=== PATIENT | male | born 1970 | race Caucasian/White ===

== ENCOUNTER → 2017-11-23 | Outpatient (CLI) | payer OTHER ==
--- NOTE | 2017-11-25 09:20 | MRI ---
EXAM DESCRIPTION: Lumbar Spine w/o Contrast MRI. CLINICAL HISTORY: DDD COMPARISON: None. TECHNIQUE: Multiplanar, multiple standard sequences, non contrast MRI, lumbar spine. FINDINGS: L5-S1: Moderate disc space loss with bilateral grade 1-2 Modic endplate reactive changes. Disc spur complex encroaching on the foramina bilaterally with severe narrowing on the left and stenosis on the right. Posterior midline disc osteophyte complex protruding 7 mm and abutting the thecal sac. 3 mm grade 1 retrolisthesis. Anterior disc bulge with spurs. Posterior ligaments and facets are negative. L4-5: Minimal disc desiccation with no bulging. Canal and patent. Mild right foraminal narrowing. L3-4: Minimal disc desiccation. Minimal ligament hypertrophy. Mild canal and right foraminal narrowing. Facets are negative. L2-3: Unremarkable. L1-2: Unremarkable. T12-L1: Unremarkable. Conus terminates at this level. Paravertebral soft tissues are unremarkable. Normal marrow signal in the remaining vertebral bodies and the posterior elements. Vertebral bodies are not compressed at any level. IMPRESSION: 1. Bilateral L5-S1 and posterior mild to moderate endplate spondylosis. Disc osteophyte complex encroaching on the bilateral foramina with right foraminal stenosis. Correlate for right L5 radiculopathy. Grade 1 retrolisthesis and posterior midline disc protrusion but no nerve impingement. 2. Minimal disc desiccation L4-5 and L3-4. Minimal ligament hypertrophy L3-4. Canal and right foraminal narrowing. Electronically signed by: Aron Alston MD 11/25/2017 9:19 AM [employer]IO [employer] Workstation: [id number]
== END | disposition home or self-care (01) ==
LOC: MRI 09:53
PROVIDERS: ATTEND Family Medicine
DX: M47.27 Other spondylosis with radiculopathy, lumbosacral region (principal)

== ENCOUNTER 2018-03-16 01:28 | Emergency (ER) | payer OTHER ==
[2018-03-16] MEDS ORDERED: AMIODARONE HCL 150 MG/3 ML VIAL IVPB ONE (01:29)
[2018-03-16] MEDS ORDERED: SODIUM BICARBONATE SYRINGE 50 MEQ/50 ML SYG IV ONE (01:29)
[2018-03-16] MEDS ORDERED: EPINEPHrine INJ 0.1 MG/ML 10 ML SYG IV ONE (01:29)
[2018-03-16] MEDS ORDERED: NALOXONE HCL INJ 1 MG/ML SYG ONE (01:53)
[2018-03-16] MEDS ORDERED: FLUMAZENIL 0.1 MG/ML VIAL ONE (02:02)
--- NOTE | 2018-03-16 02:30 | ED.PDOC ---
History of Present Illness - General Chief Complaint: Cardiac Respiratory Arrest Time Seen by Provider: 03/16/18 02:25 Source: EMS Exam Limitations: clinical condition - History of Present Illness Initial Comments: Patient presents in cardiac arrest. According to EMS he was found unresponsive at the scene and had been down for almost 10 minutes. He was in ventricular fibrillation initially and received epinephrine and three shocks en route. See EMS report. Patient was in asystole upon arrival to the E.D. He was successfully intubated and ACLS protocol was followed in an attempt to resuscitate the patient. He never changed from asystole and never had a pulse while in the E.D. Narcan and Flumazinal were also tried. See nurse's flow chart. Patient was pronounced at 2:07 a.m. Timing/Duration: other - see nurses flowchart Severity: severe Review of Systems - Review of Systems Cardiology: States: see HPI Physical Exam - Physical Exam General Appearance: Other - unresponsive Eye Exam: bilateral other - fixed and dilated, no corneal reflex Respiratory: other - No spontanous respirations. Cardiovascular/Chest: other - No pulses. No heartbeat auscultated. Peripheral Pulses: radial,right: 0, radial,left: 0, femoral,right: 0, femoral, left: 0, popliteal,right: 0, popliteal,left: 0, dorsalis pedis,right: 0, dorsalis pedis,left: 0, posterior tibialis,right: 0, posterior tibialis,left: 0 Neurologic: other - pupils fixed and dilated, no corneal reflex, no withdrawal to pain, DTRs absent. GCS 3. DTR: 0: Biceps, left, Biceps, right, Triceps, left, Triceps, right, Brachioradialis, left, Brachioradialis, right, Achilles, left, Achilles, right, Patellar, left, Patellar, right, Babinski, left, Babinski, right Skin Exam: mottled Progress - Progress Progress: 03/16/18 02:33 See nursing flowchart. Departure - Departure Clinical Impression: Cardiac arrest Disposition: Condition: Serious Departure Forms: ED Discharge - Pt. Copy, Patient Portal Self Enrollment Referrals: Marybel Ross NP [Primary Care Provider] - 1-2 Weeks
[2018-03-16 07:19] VITALS: BP 0/0
== END 2018-03-16 02:07 | disposition expired ==
LOC: ER 01:28
DX: I46.9 Cardiac arrest, cause unspecified (principal)
CPT/HCPCS: 31500; 80048; 82550; 82553; 84484; 85025; 85610; 85730; 92950; J0282; J2310